=== PATIENT | female | born 1940 | race Caucasian/White ===

== ENCOUNTER 2020-06-28 11:02 | Emergency (ER) | payer MEDICARE, OTHER ==
[~2020-06-28 11:02] MED LIST: AUGMENTIN 875-1 EACH PO; BENZONATATE100 MG PO; EDARBYCLOR 40-1 EAC1 PO; GLIPIZIDE10 MG PO; ISOSORBIDE DINI30 MG PO; ISOSORBIDE MONO30 MG PO; KEFLEX500 MG PO; LASIX20 MG PO; PEPCID40 MG PO; PRADAXA 150 MG150 MG PO; SPIRIVA18 MCG INH; VIBRAMYCIN 100100 MG PO; ZOCOR40 MG PO
[2020-06-28 12:20] LABS: HEMOGLOBIN 12.3 gm/dl (12.3-15.3); RED BLOOD COUNT 4.12 M/UL (4.00-5.10); WHITE BLOOD COUNT 10.5 K/UL (4.5-11.0)
[2020-06-28 12:55] LABS: BUN/CREATININE RATIO 33 (0-10)
== END 2020-06-28 16:07 | disposition home or self-care (01) ==
LOC: ER1 11:02
PROVIDERS: Emergency Medicine
DX: I50.9 Heart failure, unspecified (principal); R91.8 Other nonspecific abnormal finding of lung field; E11.9 Type 2 diabetes mellitus without complications; Z95.1 Presence of aortocoronary bypass graft; Z95.0 Presence of cardiac pacemaker; Z99.81 Dependence on supplemental oxygen
CPT/HCPCS: 71045; 80053; 82550; 82553; 83874; 83880; 84484; 85025; 93005; 96374; 99285; J1940

== ENCOUNTER 2020-07-01 18:09 | Emergency (ER) | payer MEDICARE, SELFPAY ==
[2020-07-01 19:30] LABS: HEMOGLOBIN 11.2 gm/dl (12.3-15.3); RED BLOOD COUNT 3.84 M/UL (4.00-5.10)
[2020-07-01 20:20] LABS: BUN/CREATININE RATIO 28 (0-10)
[2020-07-01] MEDS ORDERED: K-DUR TAB 20 M20 MEQ PO ×2 (21:37→21:45)
[2020-07-01] MEDS ORDERED: LASIX40 MG PO ×2 (21:37→21:45)
== END 2020-07-01 22:06 | disposition home or self-care (01) ==
LOC: ER1 18:09
PROVIDERS: Physician Assistant
DX: I11.0 Hypertensive heart disease with heart failure (principal); I50.9 Heart failure, unspecified; E11.65 Type 2 diabetes mellitus with hyperglycemia; R19.00 Intra-abdominal and pelvic swelling, mass and lump, unspecified site; J45.909 Unspecified asthma, uncomplicated; Z98.61 Coronary angioplasty status
CPT/HCPCS: 71045; 80053; 81001; 82550; 82553; 83690; 83874; 83880; 84484; 85025; 93005; 96374; 96375; 99285; J1940

== ENCOUNTER → 2020-08-02 | Outpatient (CLI) | payer MEDICARE, OTHER ==
[~2020-08-02] MED LIST changes: +ALBUTEROL2.5 MG/3 M INH; +ASPIRIN EC81 MG PO; +BASAGLAR K100 UNIT/1 SQ; +BREO ELLIPTA 21 EACH INH; +K-DUR TAB 20 M20 MEQ PO; +LASIX40 MG PO; +LOPRESSOR100 MG PO; +ZOLOFT50 MG PO
== END ==
LOC: KOH-I 09:11
DX: R06.02 Shortness of breath (principal); I51.7 Cardiomegaly; R09.89 Other specified symptoms and signs involving the circulatory and respiratory systems
CPT/HCPCS: 71046

== ENCOUNTER 2020-08-15 20:13 | Inpatient (IN) | payer MEDICARE, OTHER ==
[~2020-08-15] VITALS: Ht 152.4 cm; Wt 82.2 kg
[~2020-08-15 20:13] MED LIST changes: -ALBUTEROL2.5 MG/3 M INH; -ASPIRIN EC81 MG PO; -BASAGLAR K100 UNIT/1 SQ; -BREO ELLIPTA 21 EACH INH; -LOPRESSOR100 MG PO; -ZOLOFT50 MG PO
[2020-08-15 21:12] LABS: HEMOGLOBIN 13.6 gm/dl (12.3-15.3); RED BLOOD COUNT 4.52 M/UL (4.00-5.10); WHITE BLOOD COUNT 11.6 K/UL (4.5-11.0)
[2020-08-15 21:43] LABS: BUN/CREATININE RATIO 31 (0-10)
[2020-08-16] MEDS ORDERED: PEPCID40 MG PO
[2020-08-16] MEDS ORDERED: BREO ELLIPTA 21 EACH INH (00:07)
[2020-08-16] MEDS ORDERED: LOPRESSOR100 MG PO (00:08)
[2020-08-16] MEDS ORDERED: ASPIRIN EC81 MG PO (00:09)
[2020-08-16] MEDS ORDERED: BASAGLAR K100 UNIT/1 SQ (00:11)
[2020-08-16 03:23] LABS: HEMOGLOBIN 13.6 gm/dl (12.3-15.3); RED BLOOD COUNT 4.59 M/UL (4.00-5.10); WHITE BLOOD COUNT 11.1 K/UL (4.5-11.0)
[2020-08-16 04:06] LABS: BUN/CREATININE RATIO 31 (0-10)
[2020-08-16] MEDS ORDERED: ALBUTEROL2.5 MG/3 M INH (09:28)
[2020-08-18 03:53] LABS: HEMOGLOBIN 12.6 gm/dl (12.3-15.3); RED BLOOD COUNT 4.27 M/UL (4.00-5.10); WHITE BLOOD COUNT 10.4 K/UL (4.5-11.0)
[2020-08-18] MEDS ORDERED: LASIX20 MG PO (12:31)
[2020-08-18] MEDS ORDERED: ZOLOFT50 MG PO (12:33)
== END 2020-08-18 15:30 | disposition home or self-care (01) | DRG 291 ==
LOC: ER1 20:13 → MED SURG 4 23:13 → CDU 23:13 → MED SURG 4 23:13
PROVIDERS: Internal Medicine; Physician Assistant; ADMIT Family Medicine
PROC: B24BZZZ Ultrasonography of Heart with Aorta (ICD-10-PCS; principal; 2020-08-16)
DX: I13.0 Hypertensive heart and chronic kidney disease with heart failure and stage 1 through stage 4 chronic kidney disease, or unspecified chronic kidney disease (principal); I50.23 Acute on chronic systolic (congestive) heart failure; E87.1 Hypo-osmolality and hyponatremia; E11.22 Type 2 diabetes mellitus with diabetic chronic kidney disease; N18.9 Chronic kidney disease, unspecified; I25.10 Atherosclerotic heart disease of native coronary artery without angina pectoris; E78.5 Hyperlipidemia, unspecified; M19.90 Unspecified osteoarthritis, unspecified site; E11.65 Type 2 diabetes mellitus with hyperglycemia; J44.9 Chronic obstructive pulmonary disease, unspecified; I48.91 Unspecified atrial fibrillation; F32.9 Major depressive disorder, single episode, unspecified; Z20.822 Contact with and (suspected) exposure to COVID-19; Z79.84 Long term (current) use of oral hypoglycemic drugs; Z87.891 Personal history of nicotine dependence; Z95.0 Presence of cardiac pacemaker; Z95.1 Presence of aortocoronary bypass graft; Z98.49 Cataract extraction status, unspecified eye; Z85.828 Personal history of other malignant neoplasm of skin; Z90.49 Acquired absence of other specified parts of digestive tract; Z86.73 Personal history of transient ischemic attack (TIA), and cerebral infarction without residual deficits
CPT/HCPCS: ECHO; 0240U; 36415; 36600; 71045; 80048; 80053; 82550; 82553; 82803; 82962; 83735; 83874; 83880; 84484; 85025; 93005; 93306; 94640; 94664; 94760; 96374; 96376; 97110; 97161; 99285; G0378; J1940

== ENCOUNTER 2020-09-28 19:12 | Emergency (ER) | payer MEDICARE ==
[~2020-09-28 19:12] MED LIST changes: +ALBUTEROL2.5 MG/3 M INH; +ASPIRIN EC81 MG PO; +BASAGLAR K100 UNIT/1 SQ; +BREO ELLIPTA 21 EACH INH; +LOPRESSOR100 MG PO; +ZOLOFT50 MG PO
[2020-09-28 19:59] LABS: HEMOGLOBIN 12.8 gm/dl (12.3-15.3); RED BLOOD COUNT 4.48 M/UL (4.00-5.10); WHITE BLOOD COUNT 10.3 K/UL (4.5-11.0)
[2020-09-28 20:18] LABS: BUN/CREATININE RATIO 34 (0-10)
[2020-09-28] MEDS ORDERED: LASIX40 MG PO (23:24)
== END 2020-09-28 23:25 | disposition home or self-care (01) ==
LOC: ER1 19:12
PROVIDERS: Emergency Medicine
DX: I50.9 Heart failure, unspecified (principal); E11.9 Type 2 diabetes mellitus without complications; Z20.822 Contact with and (suspected) exposure to COVID-19
CPT/HCPCS: 0240U; 36600; 71045; 80053; 82550; 82553; 82803; 82962; 83735; 83874; 83880; 84484; 85025; 85379; 93005; 96374; 99285; J1940

== ENCOUNTER 2020-11-17 20:11 | Emergency (ER) | payer MEDICARE ==
[2020-11-17 21:52] LABS: HEMOGLOBIN 13.8 gm/dl (12.3-15.3); RED BLOOD COUNT 4.77 M/UL (4.00-5.10); WHITE BLOOD COUNT 6.9 K/UL (4.5-11.0)
[2020-11-17 22:16] LABS: BUN/CREATININE RATIO 20 (0-10)
== END 2020-11-17 22:14 | disposition home or self-care (01) ==
LOC: ER1 20:11
PROVIDERS: Physician Assistant
DX: R05 Cough (principal); I11.0 Hypertensive heart disease with heart failure; I50.9 Heart failure, unspecified; E11.9 Type 2 diabetes mellitus without complications; E78.5 Hyperlipidemia, unspecified; R60.0 Localized edema; Z95.1 Presence of aortocoronary bypass graft; Z95.0 Presence of cardiac pacemaker
CPT/HCPCS: 71045; 80053; 82550; 82553; 83874; 83880; 84484; 85025; 93005; 99284

== ENCOUNTER 2021-01-04 11:17 | Emergency (ER) | payer MEDICARE ==
[~2021-01-04 11:17] MED LIST changes: -ALBUTEROL2.5 MG/3 M INH; -BASAGLAR K100 UNIT/1 SQ; -BREO ELLIPTA 21 EACH INH; -EDARBYCLOR 40-1 EAC1 PO
[2021-01-04 12:26] LABS: HEMOGLOBIN 15.8 gm/dl (12.3-15.3); RED BLOOD COUNT 5.31 M/UL (4.00-5.10); WHITE BLOOD COUNT 9.2 K/UL (4.5-11.0)
[2021-01-04 12:56] LABS: BUN/CREATININE RATIO 19 (0-10)
[2021-01-04] MEDS ORDERED: LASIX40 MG PO (17:57)
== END 2021-01-04 18:15 | disposition home or self-care (01) ==
LOC: ER1 11:17
PROVIDERS: Physician Assistant
DX: I11.0 Hypertensive heart disease with heart failure (principal); I50.9 Heart failure, unspecified; R60.0 Localized edema; E11.65 Type 2 diabetes mellitus with hyperglycemia; E78.5 Hyperlipidemia, unspecified; I25.10 Atherosclerotic heart disease of native coronary artery without angina pectoris
CPT/HCPCS: 71045; 80053; 82550; 82553; 82962; 83874; 83880; 84484; 85025; 93005; 96374; 96375; 96376; 99285; J1940

== ENCOUNTER 2021-01-17 22:56 | Inpatient (IN) | payer MEDICARE ==
[~2021-01-17] VITALS: Ht 152.4 cm; Wt 81.6 kg
[2021-01-18 00:25] LABS: HEMOGLOBIN 14.1 gm/dl (12.3-15.3); RED BLOOD COUNT 4.76 M/UL (4.00-5.10); WHITE BLOOD COUNT 7.7 K/UL (4.5-11.0)
[2021-01-18 00:49] LABS: BUN/CREATININE RATIO 19 (0-10)
--- NOTE | 2021-01-18 06:25 | NUR ---
HOME MED REC WAS NOT REVIEWED BY PRIMARY RN BEFORE MD RECONCILED HOME MEDS. PT WAS UNSURE OF WHAT SHE TAKES AT HOME. PT STATED, "I'M SORRY, I FORGOT MY BAG OF MEDICINES AT HOME." HENOK RN MADE AWARE
[2021-01-18 08:47] LABS: RED BLOOD COUNT 5.14 M/UL (4.00-5.10); WHITE BLOOD COUNT 9.6 K/UL (4.5-11.0)
[2021-01-18 09:13] LABS: BUN/CREATININE RATIO 19 (0-10)
[2021-01-18] MEDS ORDERED: JANUVIA100 MG PO (09:25)
[2021-01-18] MEDS ORDERED: NITROSTAT 0.40.4 MG SL (09:27)
[2021-01-19 05:56] LABS: HEMOGLOBIN 13.7 gm/dl (12.3-15.3); RED BLOOD COUNT 4.73 M/UL (4.00-5.10); WHITE BLOOD COUNT 9.9 K/UL (4.5-11.0)
[2021-01-20 07:14] LABS: HEMOGLOBIN 13.5 gm/dl (12.3-15.3); RED BLOOD COUNT 4.57 M/UL (4.00-5.10); WHITE BLOOD COUNT 7.8 K/UL (4.5-11.0)
[2021-01-21] MEDS ORDERED: BREO ELLIPTA 21 EACH INH (00:07)
[2021-01-21] MEDS ORDERED: BASAGLAR K100 UNIT/1 SQ (00:11)
--- NOTE | 2021-01-21 07:25 | NUR ---
@0612 PTS CAME TO NURSES STATION TO ASK ME TO CHECK ON PT. UPON ARRIVAL, PT HAD WORRIED LOOK ON HER FACE, WOULD NOT FOLLOW COMMANDS, THIS IS DIFFERENT THAN HER BASELINE. VITALS CHECKED WHICH WERE WNL BESIDES SBP OF 166. DR SILVERMAN NOTIFIED AND NOTIFIED THAT WE WERE CHECKING BGL LEVEL NOW, DR SILVERMAN GAVE ORDER FOR ABG AND HEAD CT. WHEN GOING TO ROOM TO TAKE PT TO CT, CO WORKER REPORTED THAT BGL WAS 14 SO D50 GIVEN IV AND ANOTHER 20G IN THE LFA STARTED. PT IMMEDIATELY RETURNED TO BASELINE, DR SILVERMAN NOTIFED WHO CANCELLED HEAD CT
[2021-01-21 07:57] LABS: BUN/CREATININE RATIO 27 (0-10)
[2021-01-21] MEDS ORDERED: FUROSEMIDE20 MG PO (09:17)
[2021-01-21] MEDS ORDERED: ALBUTEROL2.5 MG/3 M INH (09:28)
[2021-01-21] MEDS ORDERED: EDARBYCLOR 40-1 EAC1 PO (09:33)
[2021-01-21] MEDS ORDERED: NITROSTAT 0.40.4 MG SL (10:58)
[2021-01-22 04:43] LABS: HEMOGLOBIN 13.4 gm/dl (12.3-15.3); RED BLOOD COUNT 4.6 M/UL (4.00-5.10); WHITE BLOOD COUNT 8.2 K/UL (4.5-11.0)
== END 2021-01-22 14:47 | disposition home or self-care (01) | DRG 291 ==
LOC: ER1 22:56 → M/S 01-18 03:16 → CDU 01-18 03:16 → M/S 01-18 03:16
PROVIDERS: Internal Medicine; Internal Medicine Pulmonary Disease; Physician Assistant; ADMIT Family Medicine
DX: I11.0 Hypertensive heart disease with heart failure (principal); J96.01 Acute respiratory failure with hypoxia; I48.91 Unspecified atrial fibrillation; I50.33 Acute on chronic diastolic (congestive) heart failure; E78.5 Hyperlipidemia, unspecified; Z20.822 Contact with and (suspected) exposure to COVID-19; I27.20 Pulmonary hypertension, unspecified; Z96.1 Presence of intraocular lens; K21.9 Gastro-esophageal reflux disease without esophagitis; I25.10 Atherosclerotic heart disease of native coronary artery without angina pectoris; Z79.01 Long term (current) use of anticoagulants; Z95.1 Presence of aortocoronary bypass graft; Z95.0 Presence of cardiac pacemaker; Z90.49 Acquired absence of other specified parts of digestive tract; Z98.42 Cataract extraction status, left eye; Z98.41 Cataract extraction status, right eye; Z83.3 Family history of diabetes mellitus; Z82.3 Family history of stroke; Z82.5 Family history of asthma and other chronic lower respiratory diseases; Z88.8 Allergy status to other drugs, medicaments and biological substances; Z88.6 Allergy status to analgesic agent; Z79.82 Long term (current) use of aspirin; Z87.891 Personal history of nicotine dependence; Z79.4 Long term (current) use of insulin
CPT/HCPCS: 36415; 36600; 71045; 71046; 80048; 80053; 80061; 82550; 82553; 82803; 82962; 83036; 83735; 83874; 83880; 84100; 84439; 84443; 84484; 85025; 85027; 86140; 93005; 94640; 94664; 94760; 96374; 96376; 99284; G0378; J1940; U0002

== ENCOUNTER 2021-04-02 23:37 | Emergency (ER) | payer MEDICARE ==
[~2021-04-02 23:37] MED LIST changes: +ALBUTEROL2.5 MG/3 M INH; +BASAGLAR K100 UNIT/1 SQ; +BREO ELLIPTA 21 EACH INH; +EDARBYCLOR 40-1 EAC1 PO; +FUROSEMIDE20 MG PO; +JANUVIA100 MG PO; +NITROSTAT 0.40.4 MG SL
[2021-04-03 00:34] LABS: HEMOGLOBIN 12.8 gm/dl (12.3-15.3); RED BLOOD COUNT 4.27 M/UL (4.00-5.10); WHITE BLOOD COUNT 9.7 K/UL (4.5-11.0)
[2021-04-03 00:59] LABS: BUN/CREATININE RATIO 31 (0-10)
[2021-04-03] MEDS ORDERED: PROVENTIL HFA6.7 GM INH (02:42)
== END 2021-04-03 03:06 | disposition home or self-care (01) ==
LOC: ER1 23:37
PROVIDERS: Physician Assistant
DX: I50.9 Heart failure, unspecified (principal); J90 Pleural effusion, not elsewhere classified; E11.9 Type 2 diabetes mellitus without complications; Z20.822 Contact with and (suspected) exposure to COVID-19; Z90.49 Acquired absence of other specified parts of digestive tract; Z95.818 Presence of other cardiac implants and grafts
CPT/HCPCS: 36600; 71045; 80053; 81001; 82550; 82553; 82803; 83605; 83874; 83880; 84484; 85025; 87040; 87086; 93005; 94640; 94664; 96374; 96375; 99285; J1940; J2930; U0002

== ENCOUNTER 2021-04-18 17:06 | Emergency (ER) | payer MEDICARE ==
[~2021-04-18 17:06] MED LIST changes: +PROVENTIL HFA6.7 GM INH
[2021-04-18 17:49] LABS: HEMOGLOBIN 12.5 gm/dl (12.3-15.3); RED BLOOD COUNT 4.14 M/UL (4.00-5.10); WHITE BLOOD COUNT 13.5 K/UL (4.5-11.0)
[2021-04-18] MEDS ORDERED: HYDROCODON-ACE1 EAC2 PO (18:48)
== END 2021-04-18 20:00 | disposition home or self-care (01) ==
LOC: ER1 17:06
PROVIDERS: Preventive Medicine Occupational Medicine
DX: S42.291A Other displaced fracture of upper end of right humerus, initial encounter for closed fracture (principal); I25.10 Atherosclerotic heart disease of native coronary artery without angina pectoris; E11.9 Type 2 diabetes mellitus without complications; W01.0XXA Fall on same level from slipping, tripping and stumbling without subsequent striking against object, initial encounter
CPT/HCPCS: 71045; 73030; 73562; 80053; 85025; 96374; 96375; 99284; J2270; J2405

== ENCOUNTER 2021-04-28 00:30 | Inpatient (IN) | payer MEDICARE ==
[~2021-04-28] VITALS: Ht 152 cm; Wt 91.0 kg
[~2021-04-28 00:30] MED LIST changes: +HYDROCODON-ACE1 EAC2 PO
[2021-04-28 02:22] LABS: HEMOGLOBIN 9.3 gm/dl (12.3-15.3); RED BLOOD COUNT 3.12 M/UL (4.00-5.10); WHITE BLOOD COUNT 12.9 K/UL (4.5-11.0)
[2021-04-28] MEDS ORDERED: SERTRALINE HCL50 MG PO (11:31)
[2021-04-28] MEDS ORDERED: GLIPIZIDE10 MG PO (11:32)
[2021-04-28] MEDS ORDERED: NYSTATIN15 GM TP (11:33)
[2021-04-29 04:50] LABS: HEMOGLOBIN 8.8 gm/dl (12.3-15.3); RED BLOOD COUNT 3.06 M/UL (4.00-5.10)
[2021-04-29 04:52] LABS: WHITE BLOOD COUNT 16.3 K/UL (4.5-11.0)
[2021-04-29 12:25] LABS: HEMOGLOBIN 8.7 gm/dl (12.3-15.3); RED BLOOD COUNT 2.91 M/UL (4.00-5.10); WHITE BLOOD COUNT 16.4 K/UL (4.5-11.0)
[2021-04-30 05:37] LABS: HEMOGLOBIN 8.5 gm/dl (12.3-15.3); RED BLOOD COUNT 2.93 M/UL (4.00-5.10); WHITE BLOOD COUNT 17.3 K/UL (4.5-11.0)
[2021-05-01 05:50] LABS: HEMOGLOBIN 8.1 gm/dl (12.3-15.3); RED BLOOD COUNT 2.83 M/UL (4.00-5.10); WHITE BLOOD COUNT 19.4 K/UL (4.5-11.0)
[2021-05-02 06:00] LABS: HEMOGLOBIN 8.5 gm/dl (12.3-15.3); RED BLOOD COUNT 2.88 M/UL (4.00-5.10)
[2021-05-02 06:02] LABS: WHITE BLOOD COUNT 25.3 K/UL (4.5-11.0)
[2021-05-03 05:19] LABS: RED BLOOD COUNT 2.74 M/UL (4.00-5.10)
[2021-05-03 05:39] LABS: WHITE BLOOD COUNT 33.8 K/UL (4.5-11.0)
== END 2021-05-03 14:46 | disposition expired | DRG 871 ==
LOC: ER1 00:30 → CDU 05:37 → CCU 05:37
PROVIDERS: Emergency Medicine; Internal Medicine; Internal Medicine Nephrology; ADMIT Family Medicine
PROC: 30233K1 Transfusion of Nonautologous Frozen Plasma into Peripheral Vein, Percutaneous Approach (ICD-10-PCS; principal; 2021-04-28)
PROC: 5A09457 Assistance with Respiratory Ventilation, 24-96 Consecutive Hours, Continuous Positive Airway Pressure (ICD-10-PCS; 2021-04-28)
PROC: 02HV33Z Insertion of Infusion Device into Superior Vena Cava, Percutaneous Approach (ICD-10-PCS; 2021-04-28)
PROC: 3E033XZ Introduction of Vasopressor into Peripheral Vein, Percutaneous Approach (ICD-10-PCS; 2021-05-03)
DX: A41.9 Sepsis, unspecified organism (principal); R65.21 Severe sepsis with septic shock; J96.21 Acute and chronic respiratory failure with hypoxia; I50.33 Acute on chronic diastolic (congestive) heart failure; I21.A1 Myocardial infarction type 2; K72.00 Acute and subacute hepatic failure without coma; S42.201A Unspecified fracture of upper end of right humerus, initial encounter for closed fracture; N17.9 Acute kidney failure, unspecified; E87.2 Acidosis; E87.1 Hypo-osmolality and hyponatremia; D68.59 Other primary thrombophilia; I13.0 Hypertensive heart and chronic kidney disease with heart failure and stage 1 through stage 4 chronic kidney disease, or unspecified chronic kidney disease; L03.311 Cellulitis of abdominal wall; Z20.822 Contact with and (suspected) exposure to COVID-19; E66.01 Morbid (severe) obesity due to excess calories; K21.9 Gastro-esophageal reflux disease without esophagitis; E87.5 Hyperkalemia; I25.10 Atherosclerotic heart disease of native coronary artery without angina pectoris; M79.3 Panniculitis, unspecified; I49.5 Sick sinus syndrome; I27.20 Pulmonary hypertension, unspecified; W01.0XXA Fall on same level from slipping, tripping and stumbling without subsequent striking against object, initial encounter; I48.0 Paroxysmal atrial fibrillation; B35.8 Other dermatophytoses; E11.22 Type 2 diabetes mellitus with diabetic chronic kidney disease; D63.1 Anemia in chronic kidney disease; E11.649 Type 2 diabetes mellitus with hypoglycemia without coma; N18.30 Chronic kidney disease, stage 3 unspecified; Z95.1 Presence of aortocoronary bypass graft; Z82.3 Family history of stroke; Z83.3 Family history of diabetes mellitus; Z95.0 Presence of cardiac pacemaker; Z90.49 Acquired absence of other specified parts of digestive tract; Z95.5 Presence of coronary angioplasty implant and graft; Z79.82 Long term (current) use of aspirin; Z79.4 Long term (current) use of insulin; Z98.41 Cataract extraction status, right eye; Z98.42 Cataract extraction status, left eye; Z51.5 Encounter for palliative care; Z68.39 Body mass index [BMI] 39.0-39.9, adult
CPT/HCPCS: ECHO; 36415; 36430; 36600; 51702; 70450; 71045; 71250; 73030; 73620; 76705; 80053; 80061; 80307; 81001; 82140; 82550; 82553; 82570; 82607; 82728; 82746; 82803; 82962; 83036; 83540; 83550; 83605; 83615; 83690; 83735; 83874; 83880; 83930; 84100; 84133; 84156; 84300; 84439; 84443; 84484; 84550; 85025; 85027; 85045; 85384; 85610; 85730; 86900; 86901; 86927; 87040; 87086; 89050; 93005; 93306; 94640; 94660; 94664; 94760; 96365; 96367; 96368; 96375; 99285; G0480; J0610; J0692; J1170; J1450; J2020; J2248; J2270; J3370; J7030; J7040; J7050; J7070; P9017; Q9967; U0002